=== PATIENT | female | born 2000 | race Caucasian/White ===

== ENCOUNTER → 2022-03-04 | Outpatient (CLI) | payer BC ==
[2022-03-04 14:49] LABS: HEMOGLOBIN 14.7 gm/dl (12.3-15.3); RED BLOOD COUNT 4.97 M/UL (4.00-5.10); WHITE BLOOD COUNT 11.5 K/UL (4.5-11.0)
[2022-03-04 15:14] LABS: BUN/CREATININE RATIO 15 (0-10)
[2022-03-04 16:38] LABS: ADENOVIRUS F 40/41 Not Detected (Negative); ASTROVIRUS Not Detected (Negative); CAMPYLOBACTER Not Detected (Negative); CRYPTOSPORIDIUM Not Detected (Negative); E.COLI 0157 Not Detected (Negative); ENTAMOEBA HISTOLYTICA Not Detected (Negative); ENTEROAGGREGATIVE E.COLI (EAEC Not Detected (Negative); ENTEROPATHOGENIC E.COLI (EPEC) Not Detected (Negative); ENTEROTOXIGENIC E.COLI (ETEC) Not Detected (Negative); GIARDIA LAMBLIA Not Detected (Negative); NOROVIRUS GI/GII Not Detected (Negative); PLESIOMONAS SHIGELLOIDES Not Detected (Negative); ROTOVIRUS A Not Detected (Negative); SALMONELLA Not Detected (Negative); SAPOVIRUS Not Detected (Negative); SHIG/ENTEROINVAS.ECOLI (EIEC) Not Detected (Negative); SHIGA-LIK TOX.PRO.E.COLI (STEC Not Detected (Negative); VIBRIO Not Detected (Negative); VIBRIO CHOLERAE Not Detected (Negative); YERSINIA ENTEROCOLITICA Not Detected (Negative)
[2022-03-05 08:26] LABS: CLOSTRIDIUM DIFFICILE TOX A/B Not Detected (Negative)
== END ==
LOC: LAB 13:44
PROVIDERS: Nurse Practitioner
DX: R11.2 Nausea with vomiting, unspecified (principal); R19.7 Diarrhea, unspecified; R53.83 Other fatigue; R10.84 Generalized abdominal pain
CPT/HCPCS: 36415; 80053; 83690; 85025; 87507

== ENCOUNTER 2022-03-23 21:36 | Emergency (ER) | payer BC ==
[2022-03-23 23:00] LABS: HEMOGLOBIN 13.9 gm/dl (12.3-15.3); RED BLOOD COUNT 4.68 M/UL (4.00-5.10); WHITE BLOOD COUNT 11.2 K/UL (4.5-11.0)
[2022-03-23 23:16] LABS: BUN/CREATININE RATIO 23 (0-10)
[2022-03-24] MEDS ORDERED: OMNICEF 300 MG300 MG PO (01:36)
== END 2022-03-24 01:46 | disposition home or self-care (01) ==
LOC: ER1 21:36
PROVIDERS: Physician Assistant Medical
DX: N39.0 Urinary tract infection, site not specified (principal); G89.18 Other acute postprocedural pain; F17.290 Nicotine dependence, other tobacco product, uncomplicated; Z91.013 Allergy to seafood
CPT/HCPCS: 80053; 81001; 84703; 85025; 99284; Q9967

== ENCOUNTER 2022-05-07 19:22 | Emergency (ER) | payer BC ==
[~2022-05-07 19:22] MED LIST: OMNICEF 300 MG300 MG PO
[2022-05-08] MEDS ORDERED: ZOFRAN ODT 4 MG4 MG PO (00:27)
[2022-05-08] MEDS ORDERED: PROVENTIL HFA6.7 GM INH (00:27)
[2022-05-08] MEDS ORDERED: IBUPROFEN600 MG PO (00:27)
== END 2022-05-08 00:44 | disposition home or self-care (01) ==
LOC: ER1 19:22
DX: U07.1 COVID-19 (principal); R11.2 Nausea with vomiting, unspecified; F17.290 Nicotine dependence, other tobacco product, uncomplicated; Z91.013 Allergy to seafood
CPT/HCPCS: 0240U; 71045; 87081; 87880; 96374; 96375; 99283; J1885; J2405